=== PATIENT | female | born 1955 | race Caucasian/White ===

== ENCOUNTER 2017-02-05 11:12 | Emergency (ER) | payer MEDICARE ==
[2017-02-05] MEDS ORDERED: diphenhydrAMINE 50 MG/ML VIAL ONE (12:14)
[2017-02-05] MEDS ORDERED: Prochlorperazine 10 MG/2 ML VIAL ONE (12:14)
[2017-02-05] MEDS ORDERED: Acetaminophen 500 MG TAB ONE (12:14)
== END 2017-02-05 12:57 | disposition home or self-care (01) ==
LOC: SCSER 11:12
DX: R51 Headache (principal); K31.84 Gastroparesis; M19.90 Unspecified osteoarthritis, unspecified site; F41.9 Anxiety disorder, unspecified; F32.9 Major depressive disorder, single episode, unspecified
CPT/HCPCS: 96374; 96375; J0780; J1200

== ENCOUNTER 2018-03-31 19:17 | Emergency (ER) | payer MEDICARE ==
[2018-03-31 20:00] LABS: #Basophils 0.1 thou/uL (0.0-0.2); #Lymphocytes 1.9 thou/uL (1.20-3.40); #Monocytes 0.6 thou/uL (0.11-0.59); #Neutrophils 5.5 thou/uL (1.40-6.50); %Basophils 1.1 % (0.0-1.0); %Eosinophils 0.5 % (0.0-10.0); %Lymphocytes 23.4 % (21.0-51.0); %Monocytes 7.3 % (0.0-10.0); %Neutrophils 67.8 % (42.0-75.0); Hemoglobin 13.1 g/dL (12.0-16.0); Mean Corpuscular HGB CONC 33.6 g/dL (32.0-36.0); Mean Corpuscular Hemoglobin 32.4 pg (27.0-31.0); Mean Corpuscular Volume 96.3 fL (78.0-98.0); Mean Platelet Volume 7.2 fL (7.4-10.4); Platelet Count 335 thou/uL (130-400); RBC Distribution Width 13.5 % (11.5-14.5); Red Blood Cell (RBC) Count 4.04 mill/uL (4.20-5.40); White Blood Cell (WBC) Count 8.1 thou/uL (4.8-10.8)
[2018-03-31 20:19] LABS: Acetaminophen Less than 6.0 mcg/mL (10.0-30.0); Alcohol Less than 10 mg/dL (Less than 10); Salicylate Less than 8.0 mg/dL (15.0-30.0)
[2018-03-31 20:22] LABS: ALT (SGPT) 12 U/L (8-55); AST (SGOT) 16 U/L (5-34); Albumin 4.5 g/dL (3.4-4.8); Alkaline Phosphatase 66 U/L (40-150); Anion Gap 14 mmol/L (10-20); BUN (Urea Nitrogen) 18 mg/dL (9.8-20.1); Bilirubin, Total 0.2 mg/dL (0.2-1.2); CK (CPK) 57 U/L (29-168); Calc. Creatinine Clearance 0 mL/min (70-130); Calcium 9.8 mg/dL (7.8-10.44); Carbon Dioxide 23 mmol/L (23-31); Chloride 102 mmol/L (98-107); Estimated GFR-MDRD 67; Glucose 104 mg/dL (80-115); Potassium 3.7 mmol/L (3.5-5.1); Protein, Total 7.5 g/dL (6.0-8.3); Sodium 135 mmol/L (136-145)
[2018-03-31 20:37] LABS: Bilirubin Negative (Negative); Blood, Urine Negative (Negative); Clarity CLEAR (Clear); Glucose, Urine (Dipstick) Negative (Negative); Leukocyte Negative (Negative); Nitrite Negative (Negative); Protein, Urine (Dipstick) Negative (Neg-Trace); Specific Gravity, Urine 1.018 (1.002-1.036); Urobilinogen 0.2 mg/dL (0.2-1.0)
[2018-03-31 20:45] LABS: Cocaine Metabolite Screen Not Detected (NotDetected); Medtox Reader # READER 1; Phencyclidine (PCP) Not Detected (NotDetected); THC/Cannabinoid Screen Not Detected (NotDetected)
[2018-03-31 20:46] LABS: Amphetamine Not Detected (NotDetected); Barbiturates Screen Not Detected (NotDetected); Benzodiazepine Screen Not Detected (NotDetected); Medtox Control Line Valid? VALID (VALID); Methadone Not Detected (NotDetected); Methamphetamine Not Detected (NotDetected); Opiate Screen Detected (NotDetected); Oxycodone Screen Not Detected (NotDetected); Tricyclic Screen Detected (NotDetected)
[2018-04-01] MEDS ORDERED: clonazePAM 1 MG TAB ONE (01:28)
== END 2018-04-01 03:20 ==
LOC: ERS 19:17
DX: R45.851 Suicidal ideations (principal); M19.90 Unspecified osteoarthritis, unspecified site; F41.9 Anxiety disorder, unspecified; F32.9 Major depressive disorder, single episode, unspecified; Z79.84 Long term (current) use of oral hypoglycemic drugs; Z79.51 Long term (current) use of inhaled steroids; Z79.899 Other long term (current) drug therapy
CPT/HCPCS: 36415; 80053; 80306; 80307; 81003; 82550; 84443; 85025; 99285

== ENCOUNTER 2018-08-04 08:38 | Emergency (ER) | payer MEDICARE ==
--- NOTE | 2018-08-04 10:07 | CT ---
CT CERVICAL SPINE NONCONTRAST: DATE: 08/04/2018 HISTORY: cervical trauma FINDINGS: There are no jumped or perched facets. There is no evidence of acute fracture. The vertebral body hei ghts are maintained. There is no prevertebral soft tissue swelling. There are degenerative disc changes and facet osteoarthrosis. Grade 1 anterolisthesis of C3 on C4, chronic, due to facet DJD. A g reater degree of chronic grade 1 anterolisthesis of C4 on C5 due to high-grade facet DJD. IMPRESSION: 1) Cervical spondylosis. 2) no evidence of acute fracture or acute traumatic subluxation.
== END 2018-08-04 10:40 | disposition home or self-care (01) ==
LOC: SCSER 08:38
DX: S16.1XXA Strain of muscle, fascia and tendon at neck level, initial encounter (principal); I10 Essential (primary) hypertension; F41.9 Anxiety disorder, unspecified; F32.9 Major depressive disorder, single episode, unspecified; Z79.899 Other long term (current) drug therapy; Z79.82 Long term (current) use of aspirin; W01.0XXA Fall on same level from slipping, tripping and stumbling without subsequent striking against object, initial encounter
CPT/HCPCS: 72125

== ENCOUNTER 2018-09-08 14:01 | Outpatient (CLI) | payer MEDICARE ==
--- NOTE | 2018-09-08 15:58 | RAD ---
CERVICAL SPINE 4 VIEWS: HISTORY: M54.30, neck pain and back pain. COMPARISON: None. FINDINGS: Lungs are hypo inflated. Ribs are intact. In the neutral position, there is a 2 mm C2 over C3 retrolisthesis. There is 2 mm C3 over C4 anterol isthesis. There is 3 mm C4 over C5 anterolisthesis. Severe degenerative disk space disease at C5-6 and C6-7. Severe narrowing of the atlantodental interval. There is translation with flexion and extension at C 4-C5. IMPRESSION: Severe degenerative changes with multilevel listhesis and abnormal tranlation at C4-5. POS: HOME
== END 2018-09-08 14:02 | disposition home or self-care (01) ==
LOC: SCSRAD 14:01
PROVIDERS: ATTEND Neurological Surgery
DX: M50.30 Other cervical disc degeneration, unspecified cervical region (principal); M47.812 Spondylosis without myelopathy or radiculopathy, cervical region; M43.12 Spondylolisthesis, cervical region
CPT/HCPCS: 72050

== ENCOUNTER 2018-09-29 10:47 | Outpatient (CLI) | payer MEDICARE ==
[2018-09-29 11:07] LABS: #Basophils 0.1 thou/uL (0.0-0.2); #Eosinphils 0.1 thou/uL (0.0-0.7); #Lymphocytes 2.3 thou/uL (1.20-3.40); #Monocytes 0.5 thou/uL (0.11-0.59); #Neutrophils 4.8 thou/uL (1.40-6.50); %Basophils 0.8 % (0.0-1.0); %Eosinophils 1.9 % (0.0-10.0); %Lymphocytes 29.4 % (21.0-51.0); %Monocytes 6.8 % (0.0-10.0); %Neutrophils 61.1 % (42.0-75.0); Hemoglobin 12.4 g/dL (12.0-16.0); Mean Corpuscular HGB CONC 32.1 g/dL (32.0-36.0); Mean Corpuscular Volume 93.6 fL (78.0-98.0); Mean Platelet Volume 7.8 fL (7.4-10.4); Platelet Count 280 thou/uL (130-400); RBC Distribution Width 13.8 % (11.5-14.5); Red Blood Cell (RBC) Count 4.13 mill/uL (4.20-5.40); White Blood Cell (WBC) Count 7.9 thou/uL (4.8-10.8)
[2018-09-29 11:20] LABS: ALT (SGPT) 19 U/L (8-55); AST (SGOT) 20 U/L (5-34); Albumin 4.3 g/dL (3.4-4.8); Alkaline Phosphatase 59 U/L (40-150); Anion Gap 14 mmol/L (10-20); BUN (Urea Nitrogen) 16 mg/dL (9.8-20.1); Bilirubin, Total 0.3 mg/dL (0.2-1.2); Calc. Creatinine Clearance 0 mL/min (70-130); Calcium 9.3 mg/dL (7.8-10.44); Carbon Dioxide 24 mmol/L (23-31); Chloride 104 mmol/L (98-107); Estimated GFR-MDRD 69; Globulin 3.1 g/dL (2.4-3.5); Glucose 95 mg/dL (80-115); Potassium 3.6 mmol/L (3.5-5.1); Protein, Total 7.4 g/dL (6.0-8.3); Sodium 138 mmol/L (136-145)
--- NOTE | 2018-09-29 11:59 | RAD ---
PA AND LATERAL VIEWS CHEST: Date: 09/29/18 HISTORY: Preoperative clearance. FINDINGS: Comparison made with exam of 07/01/08. The heart size is normal. The aorta is tortuous. There is continued mild elevation of the right hemid iaphragm. No lobar consolidation, pneumothoraces, or pleural effusions are seen. There are degenerati ve changes in the spine. IMPRESSION: No acute process. POS: [facility]
== END 2018-09-29 10:48 | disposition home or self-care (01) ==
LOC: SCSRAD 10:47
PROVIDERS: ATTEND Family Medicine
DX: Z01.818 Encounter for other preprocedural examination (principal)
CPT/HCPCS: 36415; 71046; 80053; 85025

== ENCOUNTER 2018-10-16 15:52 | Outpatient (CLI) | payer MEDICARE ==
--- NOTE | 2018-10-16 17:34 | RAD ---
RADIOGRAPH RIGHT TOES FOUR VIEWS: 10/16/18 HISTORY: 63-year-old female with pain and erythema of the right fourth toe for months. FINDINGS: There is no fracture or dislocation. Moderate DJD of fourth DIP joint. No periostitis or destructive osseous lesion identified. No soft tissue calcification of subcutaneous emphysema. IMPRESSION: 1. 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 2. Otherwise negative. POS: [facility]
== END 2018-10-16 15:53 | disposition home or self-care (01) ==
LOC: SCSRAD 15:52
PROVIDERS: ATTEND Family Medicine
DX: M79.674 Pain in right toe(s) (principal); M19.071 Primary osteoarthritis, right ankle and foot

== ENCOUNTER 2018-12-24 10:25 | Outpatient (CLI) | payer MEDICARE ==
--- NOTE | 2018-12-24 15:44 | RAD ---
CERVICAL SPINE: 12/24/18 Two views. HISTORY: Postop follow-up. COMPARISON: 09/08/18. Postop changes are now noted at C4-5. Anterior plate and screws and interbody implant at this level i s noted. There is an anterolisthesis at C3-4 which does not appear changed from the prior exam. Poste rior alignment at C4-5 appears normal. Spondylosis at C5-6 and C6-7 again noted with loss of disc spa ce at these levels. Anterior osteophytes at these levels are again noted. IMPRESSION: Postoperative and degenerative changes of cervical spine noted. POS: OFF
== END 2018-12-24 10:26 | disposition home or self-care (01) ==
LOC: SCSRAD 10:25
PROVIDERS: ATTEND Neurological Surgery
DX: M54.2 Cervicalgia (principal); M47.812 Spondylosis without myelopathy or radiculopathy, cervical region
CPT/HCPCS: 72040

== ENCOUNTER 2019-05-07 08:26 | Outpatient (CLI) | payer MEDICARE, OTHER ==
--- NOTE | 2019-05-07 09:20 | CT ---
CT Abdomen Pelvis W Con HISTORY: Left lower quadrant abdominal pain COMPARISON: None. FINDINGS: There are mild dependent changes in the right lung base. There are postoperative changes of gastric s leeve surgery and appendectomy. There is fatty infiltration of the liver without focal mass or abnormal biliary duct dilatation. No calcified gallstones are seen. The spleen pancreas adrenal gland s and kidneys are normal. No free air, free fluid or lymphadenopathy seen in the abdomen or pelvis. The small bowel loops are n ot abnormally dilated. There are vascular calcifications without evidence of aneurysmal dilatation of the abdominal aorta. There are degenerative changes in the spine. A small fat-containing ventral hernia is present. There are bilateral hip arthroplasties resulting in artifact which reduces the sensitivity of the exam to evaluate pelvic contents. IMPRESSION: No definite evidence of acute process.
== END 2019-05-07 08:27 | disposition home or self-care (01) ==
LOC: SCSCT 08:26
PROVIDERS: ATTEND Internal Medicine Gastroenterology
DX: R10.32 Left lower quadrant pain (principal)
CPT/HCPCS: 74177; 82565

== ENCOUNTER 2019-07-06 09:26 | Outpatient (CLI) | payer MEDICARE, OTHER ==
--- NOTE | 2019-07-06 11:29 | ULT ---
RIGHT UPPER QUADRANT ULTRASOUND: HISTORY: Abdominal pain. COMPARISON: CT, 05/07/2019. FINDINGS: Somewhat heterogeneously dense coarse liver echogenicity, possibly some nonspecific hepatic parenchy mal process or minimal fatty change. Gallbladder demonstrates no evidence of gallstones, wall thicke liz, edema, or pericholecystic fluid. Common bile duct within normal limits. No focal liver masses . Visualized pancreas and right kidney are unremarkable. IMPRESSION: Somewhat nonspecific coarse liver increased echogenicity. No evidence of gallstones or other acute p rocess. POS: [facility]
== END 2019-07-06 09:27 | disposition home or self-care (01) ==
LOC: SCSULT 09:26
PROVIDERS: ATTEND Internal Medicine Gastroenterology
DX: K58.1 Irritable bowel syndrome with constipation (principal); R10.9 Unspecified abdominal pain; E11.43 Type 2 diabetes mellitus with diabetic autonomic (poly)neuropathy; K31.84 Gastroparesis; R93.2 Abnormal findings on diagnostic imaging of liver and biliary tract
CPT/HCPCS: 76705

== ENCOUNTER 2019-08-11 10:52 | Outpatient (CLI) | payer MEDICARE, OTHER ==
--- NOTE | 2019-08-11 12:52 | RAD ---
EXAM: 5 views of the cervical spine HISTORY: Chronic neck pain COMPARISON: 09/08/2018 FINDINGS: AP, lateral, and flexion/extension views of the cervical spine shows the patient is status post anterior fusion of C4 and C5. A disc spacer is seen in good position within the intervening disc space. The vertebral bodies demonstrate normal alignment without evidence of fracture or subluxa tion. Alignment is unchanged with flexion and extension. The intervertebral discs are narrowed above and below the level of fusion with moderate surrounding osteophytes. No prevertebral soft tissu e swelling is seen. IMPRESSION: Degenerative and postsurgical changes of cervical spine as above.
--- NOTE | 2019-08-11 12:59 | MRI ---
Exam: Cervical spine MRI with and without contrast HISTORY: C4-C5 fusion. Chronic neck pain and headache. COMPARISON: None TECHNIQUE: Cervical spine MRI is performed with and without intravenous gadolinium administration. Mu lti sequential, multiplanar imaging is performed FINDINGS: Straightening of normal cervical lordosis. C4-C5 fusion with associated metallic susceptibly artifact . Grade 1 anterolisthesis of C3 upon C4 Visualized brain parenchyma, cervicomedullary junction, cervical cord and the upper thoracic cord hav e normal size and signal intensity Postcontrast images do not demonstrate any abnormal enhancement of the visualized brain parenchyma, c ervicomedullary junction, cervical cord and the upper thoracic cord C2-C3: Desiccation with moderate loss of disc space height. No posterior disc abnormality. No signifi cant central canal stenosis or significant neural foraminal narrowing C3-C4: Disc desiccation with moderate to severe loss of disc space height. Broad-based disc osteophyt e complex abuts the thecal sac. No significant central canal stenosis or significant neural foraminal narrowing C4-C5: Broad-based osteophyte ridge abuts the thecal sac. Mild central canal stenosis. Neural foramin a are patent C5-C6: Disc desiccation with loss of disc space height. Broad-based discussed by complex abuts the th ecal sac. Small right paracentral component indents the right hemicord. No cord signal abnormality. Moderate right foraminal and mild left foraminal narrowing due to uncovertebral hypertrophy C6-C7: Disc desiccation with loss of disc space height. Broad-based discussed by complex abuts the th ecal sac. No significant central canal stenosis. Moderate to severe bilateral foraminal narrowing due to uncovertebral hypertrophy C7-T1: No significant central canal stenosis or significant neural foraminal narrowing. IMPRESSION: 1. Uncomplicated cervical fusion at C4-C5 2. No abnormal enhancement 3. Varying degrees of central canal stenosis and neural foraminal narrowing as detailed above Transcribed Date/Time: 08/11/2019 1:18 PM
== END 2019-08-11 10:53 | disposition home or self-care (01) ==
LOC: SCSMRI 10:52
PROVIDERS: ATTEND Neurological Surgery
DX: M47.22 Other spondylosis with radiculopathy, cervical region (principal); M48.02 Spinal stenosis, cervical region; Z98.1 Arthrodesis status
CPT/HCPCS: 72050; 72156; 82565

== ENCOUNTER 2021-05-29 06:13 | Day surgery (SDC) | payer MEDICARE, OTHER ==
[2021-05-23 14:38] VITALS: BMI 30.9
[2021-05-29] MEDS ORDERED: Heparin 5,000 UNITS/ML VIAL ONE (06:27)
[2021-05-29] MEDS ORDERED: Neomycin-Polymyxin 1 ML AMP ONE (06:44)
[2021-05-29] MEDS ORDERED: Bupivacaine 0.25% 10 ML VIAL ONE (06:44)
[2021-05-29] MEDS ORDERED: EPINEPHrine 1 MG/ML AMP ONE (06:44)
[2021-05-29] MEDS ORDERED: Lidocaine 1% w/Epinephrine 1:100K 20 ML VIAL ONE (06:44)
[2021-05-29] MEDS ORDERED: Gentamicin 80 MG/2 ML VIAL ONE (06:44)
[2021-05-29] MEDS ORDERED: Fentanyl 100 MCG/2 ML VIAL ONE ×2 (06:45→10:29)
[2021-05-29] MEDS ORDERED: Bupivacaine 0.25% HCL 30 ML VIAL ONE (07:13)
[2021-05-29] MEDS ORDERED: CEFAZOLIN 1 GM VIAL ONE (07:23)
[2021-05-29] MEDS ORDERED: Ondansetron PF 4 MG/2 ML Vial ONE (07:35)
[2021-05-29] MEDS ORDERED: PHENYLEPHRINE-NS 100 MCG/ML 10 ML SYRINGE ONE (07:35)
[2021-05-29] MEDS ORDERED: Dexamethasone 20 MG/5 ML VIAL ONE (07:35)
[2021-05-29] MEDS ORDERED: PROPOFOL 200 MG/20 ML VIAL ONE (07:35)
[2021-05-29] MEDS ORDERED: Lidocaine 1% PF 5 ML VIAL ONE (07:35)
[2021-05-29] MEDS ORDERED: ePHEDrine 50 MG/ML VIAL ONE (07:35)
[2021-05-29] MEDS ORDERED: Phenylephrine 10 MG/ML VIAL ONE (08:44)
[2021-05-29] MEDS ORDERED: HYDROcodone/Acetaminophen 5/325 mg Tablet ONE (11:27)
== END 2021-05-29 12:03 | disposition home or self-care (01) ==
LOC: SDC 06:13
PROVIDERS: ATTEND Plastic Surgery
PROC: 0HBV0ZZ Excision of Bilateral Breast, Open Approach (ICD-10-PCS; principal; 2021-05-29)
DX: N62 Hypertrophy of breast (principal); N60.82 Other benign mammary dysplasias of left breast; M19.90 Unspecified osteoarthritis, unspecified site; Z79.84 Long term (current) use of oral hypoglycemic drugs; Z79.899 Other long term (current) drug therapy; Z88.1 Allergy status to other antibiotic agents; Z88.5 Allergy status to narcotic agent; Z88.6 Allergy status to analgesic agent; Z98.84 Bariatric surgery status
CPT/HCPCS: 88305; J0171; J0690; J1100; J1580; J1644; J2370; J2405; J2704; J3010; J3370; J3490; S0020

== ENCOUNTER 2021-07-06 10:15 | Outpatient (CLI) | payer MEDICARE, OTHER | END 2021-07-06 10:16 | disposition home or self-care (01) | LOC: SCSRAD 10:15 | PROVIDERS: ATTEND Nurse Practitioner Family | DX: M43.17 Spondylolisthesis, lumbosacral region (principal); M47.814 Spondylosis without myelopathy or radiculopathy, thoracic region; M25.551 Pain in right hip; M47.816 Spondylosis without myelopathy or radiculopathy, lumbar region | CPT/HCPCS: 72072; 72110 ==

== ENCOUNTER 2021-08-02 08:37 | Outpatient (CLI) | payer MEDICARE, OTHER | END 2021-08-02 08:38 | disposition home or self-care (01) | LOC: NM 08:37 | PROVIDERS: ATTEND Family Medicine Sports Medicine | DX: Z47.1 Aftercare following joint replacement surgery (principal); Z96.643 Presence of artificial hip joint, bilateral | CPT/HCPCS: 78315; A9503 ==